=== PATIENT | female | born 1930 | race American Indian/Alaskan Native ===

== ENCOUNTER 2016-12-04 20:52 | Inpatient (IN) | payer MEDICARE ==
--- NOTE | 2016-12-04 21:23 | Emergency Department Report ---
HPI - General Chief Complaint: Neuro Symptoms/Deficit Time Seen by Provider: 12/04/16 20:58 - HPI HPI: Room 8 The patient is an 86-year-old female presenting with a chief complaint of altered mental status/seizure. History is obtained from nurse at [place] who states that approximately 20:30 while in a wheelchair the patient slumped over appear clammy and began twitching/shaking in her face and entire body. The nurse states it appeared as if it was a seizure. Nursing states the patient seems for approximate 5 minutes and afterwards was drooling and unresponsive. The nurse states the patient eventually wiped her mouth and made eye contact but then slumped over again and began drooling. At this time EMS was called for transport. Nursing states this is unusual for the patient she has no history of seizures. The patient is normally alert and able to have a conversation. During my interview the patient is awake and makes eye contact but does not respond verbally Location: Mental state, [facility] [employer] [facility] Duration: [see above] Quality: Altered Severity: Moderate Modifying factors: [see above] Context: [see above] Mode of transportation: [not driving] ED Past Medical Hx - Past Medical History Hx Hypertension: Yes Additional medical history: Dementia, osteoporosis, hypothyroidism - Family History Family history: no significant - Social History Smoking Status: Unknown if ever smoked Substance Use Type: None ED Review of Systems ROS: Stated complaint: POSSIBLE SEIZURE Other details as noted in HPI Comment: Unobtainable due to pts medical conditions Physical Exam - Physical Exam Vital Signs: Vital Signs 12/04/16 12/04/16 21:02 21:08 Temperature 98 F 98 F Pulse Rate 60 58 L Respiratory 16 Rate Blood Pressure 104/36 Blood Pressure 104/36 [Left] O2 Sat by Pulse 96 Oximetry Physical Exam: GENERAL: The patient is well-developed well-nourished elderly female lying on stretcher not appearing to be in acute distress. Contact but does not respond verbally HEENT: Normocephalic. Atraumatic. Extraocular motions are intact. NECK: Supple. Trachea midline CHEST/LUNGS: Clear to auscultation. There is no respiratory distress noted. HEART/CARDIOVASCULAR: Regular. There is no tachycardia. There is no gallop rub or murmur. ABDOMEN: Abdomen is soft, nontender. Patient has normal bowel sounds. There is no abdominal distention. SKIN: There is no rash. There is no edema. There is no diaphoresis. NEURO: The patient is awake and makes eye contact but does not respond verbally. The patient moves all 4 extremities when they are stimulated individually. The patient does not cooperate with an exam MUSCULOSKELETAL: There is no evidence of acute injury. ED Course Vital Signs 12/04/16 12/04/16 21:02 21:08 Temperature 98 F 98 F Pulse Rate 60 58 L Respiratory 16 Rate Blood Pressure 104/36 Blood Pressure 104/36 [Left] O2 Sat by Pulse 96 Oximetry ED Medical Decision Making - Lab Data Result diagrams: 12/04/16 21:29 12/04/16 22:52 Laboratory Tests 12/04/16 12/04/16 12/04/16 21:29 21:29 21:29 WBC 7.8 RBC 4.41 Hgb 10.1 Hct 33.1 MCV 75 L MCH 23 L MCHC 31 RDW 15.1 Plt Count 200 Lymph % (Auto) 24.8 Reeves % (Auto) 5.8 Eos % (Auto) 1.9 Baso % (Auto) 0.6 Lymph # 1.9 Reeves # 0.5 Eos # 0.2 Baso # 0.0 Seg Neutrophils % 66.9 Seg Neutrophils # 5.2 PT 12.2 INR 0.91 APTT 22.5 L Sodium TNR Potassium TNR Chloride TNR Carbon Dioxide TNR Anion Gap TNR BUN TNR Creatinine TNR Estimated GFR TNR BUN/Creatinine Ratio TNR Glucose TNR Calcium TNR Magnesium TNR Total Creatine Kinase TNR CK-MB (CK-2) TNR CK-MB (CK-2) Rel Index TNR Troponin T TNR TSH Free T4 12/04/16 12/04/16 21:29 22:52 WBC RBC Hgb Hct MCV MCH MCHC RDW Plt Count Lymph % (Auto) Reeves % (Auto) Eos % (Auto) Baso % (Auto) Lymph # Reeves # Eos # Baso # Seg Neutrophils % Seg Neutrophils # PT INR APTT Sodium 139 Potassium 4.5 Chloride 99.1 Carbon Dioxide 25 Anion Gap 19 BUN 38 H Creatinine 1.3 H Estimated GFR 47 BUN/Creatinine Ratio 29.23 Glucose 128 H Calcium 8.5 Magnesium Total Creatine Kinase 37 CK-MB (CK-2) < 1.0 CK-MB (CK-2) Rel Index 2.7 Troponin T < 0.010 TSH 5.140 H Free T4 1.12 - EKG Data -: EKG Interpreted by Me EKG shows normal: sinus rhythm Rate: bradycardia (55 bpm) - EKG Data When compared to previous EKG there are: previous EKG unavailable Interpretation: other (no ischemic changes seen) - Radiology Data Radiology results: report reviewed (CT head), image reviewed (CT head) CT head (read by radiologist)-involutional changes. No hemorrhage or cortical infarct - Differential Diagnosis ICH, electrolyte imbalance, intracranial mass Critical care attestation.: If time is entered above; I have spent that time in minutes in the direct care of this critically ill patient, excluding procedure time. ED Disposition Clinical Impression: Altered mental status, Seizure Disposition: OP ADMITTED IP TO THIS HOSP Is pt being admited?: Yes Does the pt Need Aspirin: Yes Condition: Stable Referrals: PRIMARY CARE, [Primary Care Provider] - 3-5 Days Time of Disposition: 00:28 (hospitalist paged)
[2016-12-04 22:11] LABS: Basophils % (Auto) 0.6 % (0.0-1.8); Eosinophils % (Auto) 1.9 % (0.0-4.3); Hematocrit 33.1 % (30.3-42.9); Hemoglobin 10.1 gm/dl (10.1-14.3); Mean Corpuscular HGB Conc 31 % (30-34); Mean Corpuscular Hemoglobin 23 pg (28-32); Mean Corpuscular Volume 75 fl (79-97); Platelet Count 200 K/mm3 (140-440); Red Blood Count 4.41 M/mm3 (3.65-5.03); Red Cell Distribution Width 15.1 % (13.2-15.2); White Blood Count 7.8 K/mm3 (4.5-11.0)
[2016-12-04 22:29] LABS: Anion Gap TNR mmol/L; Carbon Dioxide TNR mmol/L (22-30); Chloride TNR mmol/L (98-107); Potassium TNR mmol/L (3.6-5.0); Sodium TNR mmol/L (137-145)
[2016-12-04 22:30] LABS: BUN/Creatinine Ratio TNR; Blood Urea Nitrogen TNR mg/dL (7-17); Calcium TNR mg/dL (8.4-10.2); Creatine Kinase TNR units/L (30-135); Glucose TNR mg/dL (65-100); Magnesium TNR mg/dL (1.7-2.3)
[2016-12-04 22:31] LABS: Creatine Kinase MB TNR ng/mL (0.0-4.0)
--- NOTE | 2016-12-04 22:32 | Cat Scan Report ---
FINAL REPORT PROCEDURE: CT HEAD/BRAIN WO CON TECHNIQUE: Computerized tomography of the head was performed without contrast material. HISTORY: new-onset seizure, altered mental status COMPARISON: No prior studies are available for comparison. FINDINGS: Skull and scalp: Normal. Paranasal sinuses: Normal. Ventricles and subarachnoid spaces: Moderate dilatation. Cerebrum: No evidence of hemorrhage, acute infarction or mass. Atrophy with periventricular diminished densities. Cerebellum and brainstem: No evidence of hemorrhage, acute infarction or mass. Atrophy. Vasculature: Normal. Comments: None. IMPRESSION: Involutional changes. No hemorrhage or cortical infarct.
[2016-12-04 22:41] LABS: INR 0.91 (0.87-1.13)
[2016-12-04 22:42] LABS: Partial Thromboplastin Time 22.5 Sec. (24.2-36.6)
[2016-12-04] MEDS ORDERED: KEPPRA 1,000 MG/NS 0.75% 100ML 1,000 MG/100 ML BAG IV ONE (23:32)
[2016-12-05 00:11] LABS: Anion Gap 19 mmol/L; BUN/Creatinine Ratio 29.23; Blood Urea Nitrogen 38 mg/dL (7-17); Calcium 8.5 mg/dL (8.4-10.2); Carbon Dioxide 25 mmol/L (22-30); Chloride 99.1 mmol/L (98-107); Creatine Kinase 37 units/L (30-135); Glucose 128 mg/dL (65-100); Potassium 4.5 mmol/L (3.6-5.0); Sodium 139 mmol/L (137-145)
[2016-12-05 00:12] LABS: Creatine Kinase MB < 1.0 ng/mL (0.0-4.0)
[2016-12-05 01:19] LABS: Urine Drugs of Abuse Note Disclamer
[2016-12-05 01:28] LABS: Bilirubin,Urine NEG (Negative); Blood,Urine SM (Negative); Ketones,Urine NEG (Negative); Leukocyte Esterase,Urine SM (Negative); Nitrite,Urine NEG (Negative); Protein,Urine <15 mg/dL mg/dL (Negative); Urobilinogen,Urine < 2.0 mg/dL (<2.0)
--- NOTE | 2016-12-05 07:40 | Event Note ---
Date: 12/05/16 See H/p in reports AMS New onset seizure disorder
[2016-12-05] MEDS ORDERED: NACL 0.9% 1000 ML 1,000 ML IV ONE (08:00)
--- NOTE | 2016-12-05 09:28 | Admit Criteria Form ---
Admission Criteria Documentation: SEIZURE Clinical Indications for Admission to Inpatient Care (Place 'X' for any and all applicable criteria): Admission is indicated for seizure and ANY ONE of the following(1)(2)(3)(4)(5): [X]I. Inpatient admission required rather than observation care (Also use Seizure: Observation Care Criteria as appropriate) because of ANY ONE of the following: [X]a) Altered mental status that is severe or persistent [ ]b) New focal neurologic deficit that is severe or persistent [ ]c) Metabolic disorder (eg, hypoglycemia, hyponatremia) that is severe or persistent [ ]d) Recurrent seizure [ ]e) Outpatient antiseizure regimen cannot be established (eg , patient cannot tolerate medication, initiation requires inpatient care) [ ]f) Need for ongoing intravenous infusion of antiseizure medication [ ]g) Cardiac arrhythmias of immediate concern [ ]h) Cerebral bleeding, hydrocephalus, or vasospasm monitoring (14) [ ]i) Increased intracranial pressure or cerebral edema monitoring (15) [ ]j) Other treatment or monitoring requiring inpatient admission [ ]II. Status epilepticus [A] or repetitive seizures not controlled with emergent treatment (6)(8) [ ]III. Brain disorder (eg, tumor, edema, and hydrocephalus) that requiring monitoring or intervention available only at inpatient level of care. [ ]IV. Brain insult (eg, severe trauma, stroke, drug toxicity, or withdrawal) that requires monitoring or intervention available only at inpatient level of care (10)(11) Extended stay beyond goal length of stay may be needed for (22) [ ]a) Complications of status epilepticus [ ]b) Refractory status epilepticus [ ]c) Etiology-specific therapy for conditions such as [employer]TER infection, head injury,eclampsia, severe metabolic abnormalities, and brain tumor [ ]d) Residual neurologic damage, [ ]e) Initiation of significant change to anticonvulsant treatment [ ]f) Older patients (65 years or older) [ ]g) Patient requiring intubation (eg, to protect airway) The original [facility] content created by [employer] has been revised. The portions of the content which have been revised are identified through the use of italic text or in bold, and [facility] [employer] has neither reviewed nor approved the modified material. All other unmodified content is copyright [email or web address]. Please see references footnoted in the original [facility] edition 2016 Admission Criteria Met: Yes
--- NOTE | 2016-12-05 09:42 | Consultation ---
History of Present Illness - Reason for Consult Consult date: 12/05/16 acute renal failure - History of Present Illness The patient is an 86-year-old AAF was brought into the ER with a complaint of altered mental status. History was obtained from her daughter who was at the bedside and previous documentation. Patient lives at [place], the nurse found her slumped over the wheel chair. She appeared clammy and began twitching /shaking in her face and entire body. Patient was drooling and became unresponsive. The patient is normally alert and able to have a conversation. She was found to have creatinine of 1.3 on admission and improved to 1 today. Medications and Allergies Allergies Allergy/AdvReac Type Severity Reaction Status Date / Time Unable to Assess Allergy Unverified 12/04/16 21:13 Home Medications Medication Instructions Recorded Confirmed Last Taken Type No Known Home Medications [No 12/05/16 12/05/16 Unknown History Reported Home Medications] Active Meds: Active Medications Levetiracetam 500 mg/ Dextrose 105 mls @ 400 mls/hr IV Q12HR LINDA Sodium Chloride (Nacl 0.9% 1000 Ml) 1,000 mls @ 125 mls/hr IV ONCE ONE Stop: 12/05/16 15:59 Last Admin: 12/05/16 08:55 Dose: 125 mls/hr Review of Systems ROS unobtainable: due to mental status Exam - Vital Signs Vital signs: Vital Signs Temp Pulse BP 98 F 60 104/36 12/04/16 21:02 12/04/16 21:02 12/04/16 21:02 - General Appearance General appearance: well-developed, appears stated age, frail, other (no distress, exam is limited as patient is not following any command) EENT: ATNC Neck: Present: neck supple Respiratory: Clear to Ascultation Heart: regular, S1S2, no murmurs Gastrointestinal: Present: normoactive bowel sounds. Absent: tenderness, distended Integumentary: no rash Neurologic: other (alert, non-verbal) Musculoskeletal: Present: other (no edema) Results - Lab Results 12/04/16 21:29 12/05/16 11:03 Most recent lab results Calcium 8.5 mg/dL (8.4-10.2) 12/04/16 22:52 Magnesium TNR 12/04/16 21:29 Assessment and Plan - Patient Problems (1) KYMBERLY (acute kidney injury) Current Visit: Yes Status: Acute Plan to address problem: Acute kidney Injury likely hemodynamically mediated. Creatinine had improved with IV fluids. Slightly elevated CK level noted. Will follow. (2) Altered mental status Current Visit: Yes Status: Acute Qualifiers: Altered mental status type: A Coma depth: C Coma timing: C (3) Seizure Current Visit: Yes Status: Acute
--- NOTE | 2016-12-05 09:59 | History and Physical Report ---
CHIEF COMPLAINT: 1. Seizures. 2. Altered mental status. HISTORY OF PRESENT ILLNESS: An 86-year-old -German female presents to the ER with new onset seizures while in [facility]personal jail. The patient apparently slumped over, became clammy and began shaking in the face and body. The nurse at [facility] mentions that it may be a seizure, which lasted for about 5 minutes, afterwards was drooling and became unresponsive. The patient continued to be with decreased responsiveness. The patient has no history of seizures. The patient is normally alert and able to have a conversation. When I examined the patient, the patient able to make eye contact, but does not respond verbally. No exacerbating or relieving factors, new onset. PAST MEDICAL HISTORY: Significant for dementia, osteoporosis, and hypothyroidism. FAMILY HISTORY: No significant family history. SOCIAL HISTORY: Does not smoke. No alcohol, no recreational drugs. PAST SURGICAL HISTORY: Unknown. REVIEW OF SYSTEMS: Other than seizures and decreased responsiveness. Review of systems could not be done because of the patient's mental status. A 14-point review of systems was attempted. PHYSICAL EXAMINATION: GENERAL: Elderly female, lying in bed and decreased responsiveness. VITAL SIGNS: Temperature 98, pulse is 60, respirations is 16, blood pressure 104/36. HEENT: Unremarkable. Pupils are equal and reactive. NECK: Supple, no lymphadenopathy, no thyromegaly. LUNGS: Clear to auscultation and percussion. Good air entry. CARDIOVASCULAR: S1, S2 heard. No gallop, no murmur, no rub. Apical impulse in left fifth intercostal space and midclavicular line. ABDOMEN: Soft and benign. No hepatosplenomegaly. No guarding, no rigidity. Hernial orifices are normal. EXTREMITIES: Good pedal pulses. No pedal edema. CENTRAL NERVOUS SYSTEM: Decreased responsiveness. Moves all 4 extremities. SKIN: Normal. LABORATORY DATA: Significant for BUN and creatinine of 38 and 1.3; otherwise, normal labs. TSH is 5.14. Urine is negative. Drug screen is negative. IMPRESSION AND PLAN: 1. Altered mental status, probably secondary to seizures. 2. New onset seizures. The patient was started on IV Keppra. We will defer to Neurology whether to continue Keppra or not and transition to p.o. Keppra. 3. Acute renal failure. The patient was started on IV fluids, monitored. Also, renal consult requested by Dr. Cardenas. 4. Deep venous thrombosis prophylaxis, Lovenox 40 mg subcutaneous daily. JOB# [id number] GWYN/MALIK
[2016-12-05] MEDS: KEPPRA 500 MG in D5W 100 ML IV SCH ×2 (10:44→22:30)
[2016-12-05 11:59] LABS: Anion Gap 17 mmol/L; Blood Urea Nitrogen 29 mg/dL (7-17); Calcium 8.7 mg/dL (8.4-10.2); Carbon Dioxide 26 mmol/L (22-30); Creatine Kinase 681 units/L (30-135); Glucose 117 mg/dL (65-100); Potassium 4.9 mmol/L (3.6-5.0); Sodium 141 mmol/L (137-145)
--- NOTE | 2016-12-05 12:17 | Consultation ---
History of Present Illness Consult date: 12/05/16 Requesting physician: JR PAL Reason for Consult: seizure Chief complaint: AMS limits direct hx History of present illness: 86 YO F Hx dementia ? Hx stroke and resident of [place] p/w episode of LOC on 12/04. Pt unable to provide direct hx d/t dementia. According to daughter pt had just finished eating dinner and that at approximately 20:30 while in a wheelchair the patient slumped over appear clammy. BP was apparently low but not clearly documented. Daughter denies convulsion but according to ED physician nurse in home witnessed twitching/shaking in her face and entire body, reportedly appearing as if it was a seizure. Nursing states the patient seems for approximate 5 minutes and afterwards was drooling and unresponsive. The nurse states the patient eventually wiped her mouth and made eye contact but then slumped over again and began drooling. At this time EMS was called for transport. @ baseline the patient is normally alert and able to have a conversation. In ED, patient was awake and alert. She is near her baseline per daughter but has some decreased verbalizations and increased confusion. Past History Past Medical History: other (dementia) Past Surgical History: No surgical history Social history: single. denies: smoking, alcohol abuse, prescription drug abuse , IV drug use Family history: no significant family history Medications and Allergies Allergies Allergy/AdvReac Type Severity Reaction Status Date / Time Unable to Assess Allergy Unverified 12/04/16 21:13 Home Medications Medication Instructions Recorded Confirmed Last Taken Type No Known Home Medications [No 12/05/16 12/05/16 Unknown History Reported Home Medications] Active Meds: Active Medications Levetiracetam 500 mg/ Dextrose 105 mls @ 400 mls/hr IV Q12HR LINDA Last Admin: 12/05/16 10:44 Dose: 400 mls/hr Sodium Chloride (Nacl 0.9% 1000 Ml) 1,000 mls @ 125 mls/hr IV ONCE ONE Stop: 12/05/16 15:59 Last Admin: 12/05/16 08:55 Dose: 125 mls/hr Review of Systems ROS unobtainable: due to mental status Physical Examination - Vital Signs Vital Signs: Vital Signs Temp Pulse BP 98 F 60 104/36 12/04/16 21:02 12/04/16 21:02 12/04/16 21:02 - Constitutional General appearance: comfortable, chronically ill - EENT EENT: Present: ATNC, PERRL, mucous membranes dry, vision intact, other (hearign impaired) - Respiratory Respiratory: Present: chest non-tender, normal breath sounds, no respiratory distress - Cardiovascular Cardiovascular: Present: regular rate Extremities: Present: no peripheral edema bilatateraly, no clubbing, cyanosis, no inflammation, no ischemia or petechiae - Gastrointestinal Gastrointestinal: Present: normoactive bowel sounds, soft, non-distended - Integumentary Integumentary: Present: normal - Neurologic Cranial nerve examination: PERRL, EOMI, VFF, intact, intact shoulder shrug, intact cough reflex Speech examination: other (paucity of speech, disorientation but no clear aphasia) Sensorimotor examination: intact Detailed motor examination: grossly full strength in Motor examination - right side: 4/5: biceps, triceps, wrist flexion, wrist extension, technical operator, hip flexors, knee extensors, dorsiflexion, toe extension (EHL) , plantarflexion Motor examination - left side: 4/5: biceps, triceps, wrist flexion, wrist extension, technical operator, hip flexors, knee extensors, dorsiflexion, toe extension (EHL) , plantarflexion Detailed sensory examination: intact, light touch, pain, temperature Reflex and gait examination: intact Reflexes: 0: ankle, 2+: bicep, knee, tricep - Musculoskeletal Musculoskeletal: Present: no fluid collection, no pain, normal range of motion - Psychiatric Psychiatric: Present: mood/affect appropriate, cooperative Results - Laboratory Findings CBC and BMP: 12/04/16 21:29 12/05/16 11:03 Abnormal Lab Findings: Abnormal Labs 12/05/16 11:03 BUN 29 H Glucose 117 H Total Creatine Kinase 681 H Assessment and Plan 86 YO F 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 assoc w/ convulsion but discrepant Hx according to daughter and nurse @ NH report.. Pt unable to provide direct hx d/ t dementia. Report of hypotension but value not clearly documented. She is near her baseline per daughter but has some decreased verbalizations and increased confusion. CTH nonacute. Pt was found to have KYMBERLY. I am more suspicious for postprandial convulsive syncope from hypotension and toxic metabolic encephalopathy. Plan and Recommendation: 1. Telemetry bed w/ Q4 hour neuro checks & Sz precautions 2. Daughter declines MRI Brain 3. Labs: Serum/Urine Tox, UA/UCx, Electrolytes especially Na, Ca, Mg, and Glucose, TSH/Vit B12/Ammonia and correct as necessary 4. Cont Infectious work up/medical management for UTI, PNA, cellulitis, bacteremia, etc. 5. Avoid hyponatremia, hypo/hyper-calcemia, hypo/hyperglycemia, acidosis, hypoxia/hypoxemia, hypercarbia/hypercapnia 6. Avoid institution of any psychoactive medications (e.g. antihistamines, anticholinergics, BZD, hypnotics, opiates) as able unless low doses of low potency antipsychotic needed for behavioral issues complicating medical care 7. AED therapy: Defer @ this time but will need to re-eval if recurrent seizure 8. Avoid meds that can lower sz threshold e.g. Tramadol, fluroquinolones, carbapenems 9. Pt advised of [place] driving regulations: report date of presumed Seizure/ unexplained loss of consciousness/awareness spell to DMV, refrain from operating a motor vehicle for 6 months after this date, and avoid unsupervised activity particularly around water or heights 10. Neurologically clear for discharge once resolved fully to baseline w/o recurrent seizure for 24 hrs. 11. Follow up as outpt with Neurology 12. We can revisit as needed.
--- NOTE | 2016-12-05 12:42 | Progress Note ---
Assessment and Plan Assessment and plan: Patient is 86-year-old woman from [facility] with a history of dementia, hypothyroidism, osteoporosis and ?CVA who presents with altered mental status with seizure-like activity. CT head without contrast shows no acute findings. -Acute encephalopathy with dehydration -Seizure-like syncope: Neurology is following, symptomatic care for now, no AED , will stop per neuro. Family declined MRI per neurology -KYMBERLY, vasomotor nephropathy due to dehydration, resolved with IV fluids -Dementia, chronic and worsening: continue supportive care -DVT prophylaxis: SCDs added subq heparin -Disposition: Continue inpatient care, anticipate d/c back to [place] tomorrow. Full code Ordered a.m. labs Asked RN to call fpc for medications profile to reconcile History Interval history: Patient seen and examined. Follow up on seizure which has resolved. Overnight uneventful. Patient gives no history. Imaging, old records, testing, labs, nursing notes reviewed. Hospitalist Physical - Physical exam Narrative exam: GEN: Thin frail woman NAD, sleeping but arousable, nonverbal CVS: RRR, NORMAL S1S2 LUNGS/CHEST: CTA B, NORMAL CHEST EXPANSION B, GOOD AIR ENTRY B ABD: SOFT NTND, GBS, NO REBOUND OR GUARDING EXT/SKIN: NO SIGNIFICANT EDEMA OR RASH MSK: Weaker on the right than left extremity NEURO: CN 2-12 GROSSLY INTACT, NO new FOCAL DEFICITS PSY: CALM - Constitutional Vitals: Temp Pulse Resp BP Pulse Ox 98.1 F 55 L 16 131/63 100 12/05/16 09:55 12/05/16 09:55 12/05/16 09:55 12/05/16 09:55 12/05/16 09:55 Results - Labs CBC & Chem 7: 12/04/16 21:29 12/05/16 11:03 Labs: Laboratory Last Values WBC 7.8 K/mm3 (4.5-11.0) 12/04/16 21:29 RBC 4.41 M/mm3 (3.65-5.03) 12/04/16 21:29 Hgb 10.1 gm/dl (10.1-14.3) 12/04/16 21:29 Hct 33.1 % (30.3-42.9) 12/04/16 21:29 MCV 75 fl (79-97) L 12/04/16 21:29 MCH 23 pg (28-32) L 12/04/16 21: MCHC 31 % (30-34) 12/04/16 21: RDW 15.1 % (13.2-15.2) 12/04/16 21: Plt Count 200 K/mm3 (140-440) 12/04/16 21: Lymph % (Auto) 24.8 % (13.4-35.0) 12/04/16 21: [place] % (Auto) 5.8 % (0.0-7.3) 12/04/16 21: Eos % (Auto) 1.9 % (0.0-4.3) 12/04/16 21: Baso % (Auto) 0.6 % (0.0-1.8) 12/04/16 21: Lymph # 1.9 K/mm3 (1.2-5.4) 12/04/16 21: [place] # 0.5 K/mm3 (0.0-0.8) 12/04/16 21: Eos # 0.2 K/mm3 (0.0-0.4) 12/04/16 21: Baso # 0.0 K/mm3 (0.0-0.1) 12/04/16 21: Seg Neutrophils % 66.9 % (40.0-70.0) 12/04/16 21: Seg Neutrophils # 5.2 K/mm3 (1.8-7.7) 12/04/16 21: PT 12.2 Sec. (12.2-14.9) 12/04/16 21: INR 0.91 (0.87-1.13) 12/04/16 21:29 APTT 22.5 Sec. (24.2-36.6) L 12/04/16 21: Sodium 141 mmol/L (137-145) 12/05/16 11:03 Potassium 4.9 mmol/L (3.6-5.0) 12/05/16 11:03 Chloride 103.0 mmol/L (98-107) 12/05/16 11:03 Carbon Dioxide 26 mmol/L (22-30) 12/05/16 11:03 Anion Gap 17 mmol/L 12/05/16 11:03 BUN 29 mg/dL (7-17) H 12/05/16 11:03 Creatinine 1.0 mg/dL (0.7-1.2) 12/05/16 11:03 Estimated GFR > 60 ml/min 12/05/16 11:03 BUN/Creatinine Ratio 29.00 % 12/05/16 11:03 Glucose 117 mg/dL (65-100) H 12/05/16 11:03 Calcium 8.7 mg/dL (8.4-10.2) 12/05/16 11:03 Phosphorus 3.00 mg/dL (2.5-4.5) 12/05/16 11:03 Magnesium 1.90 mg/dL (1.7-2.3) 12/05/16 11:03 Total Creatine Kinase 681 units/L (30-135) H 12/05/16 11:03 CK-MB (CK-2) < 1.0 ng/mL (0.0-4.0) 12/04/16 22:52 CK-MB (CK-2) Rel Index 2.7 (0-4) 12/04/16 22:52 Troponin T < 0.010 ng/mL (0.00-0.029) 12/04/16 22:52 TSH 5.140 mlU/mL (0.270-4.200) H 12/04/16 21:29 Free T4 1.12 ng/dL (0.76-1.46) 12/04/16 21:29 Urine Color Straw (Yellow) 12/05/16 01:15 Urine Turbidity Clear (Clear) 12/05/16 01:15 Urine pH 5.0 (5.0-7.0) 12/05/16 01:15 Ur Specific [place] 1.010 (1.003-1.030) 12/05/16 01:15 Urine Protein <15 mg/dl mg/dL (Negative) 12/05/16 01:15 Urine Glucose (UA) Neg mg/dL (Negative) 12/05/16 01:15 Urine Ketones Neg mg/dL (Negative) 12/05/16 01:15 Urine Blood Sm (Negative) 12/05/16 01:15 Urine Nitrite Neg (Negative) 12/05/16 01:15 Urine Bilirubin Neg (Negative) 12/05/16 01:15 Urine Urobilinogen < 2.0 mg/dL (<2.0) 12/05/16 01:15 Ur Leukocyte Esterase Sm (Negative) 12/05/16 01:15 Urine WBC (Auto) 4.0 /HPF (0.0-6.0) 12/05/16 01:15 Urine RBC (Auto) 2.0 /HPF (0.0-6.0) 12/05/16 01:15 U Epithel Cells (Auto) 1.0 /HPF (0-13.0) 12/05/16 01:15 Urine Opiates Screen Presumptive negative 12/05/16 01:15 Urine Methadone Screen Presumptive negative 12/05/16 01:15 Ur Barbiturates Screen Presumptive negative 12/05/16 01:15 Ur Phencyclidine Scrn Presumptive negative 12/05/16 01:15 Ur Amphetamines Screen Presumptive negative 12/05/16 01:15 U Benzodiazepines Scrn Presumptive negative 12/05/16 01:15 Urine Cocaine Screen Presumptive negative 12/05/16 01:15 U Marijuana (THC) Screen Presumptive negative 12/05/16 01:15 Drugs of Abuse Note Disclamer 12/05/16 01:15 - Imaging and Cardiology CT Scan - head: report reviewed
[2016-12-05] MEDS: HEPARIN SUB-Q SCH (22:31)
[2016-12-06 05:44] LABS: Basophils % (Auto) 0.5 % (0.0-1.8); Eosinophils % (Auto) 3.1 % (0.0-4.3); Hematocrit 29.4 % (30.3-42.9); Hemoglobin 9.3 gm/dl (10.1-14.3); Mean Corpuscular HGB Conc 32 % (30-34); Mean Corpuscular Volume 74 fl (79-97); Platelet Count 185 K/mm3 (140-440); Red Blood Count 3.99 M/mm3 (3.65-5.03); White Blood Count 5.4 K/mm3 (4.5-11.0)
[2016-12-06 05:45] LABS: Mean Corpuscular Hemoglobin 23 pg (28-32)
[2016-12-06 06:01] LABS: Alanine Aminotransferase 6 units/L (7-56); Albumin/Globulin Ratio 1.1 %; Alkaline Phosphatase 48 units/L (35-129); Anion Gap 15 mmol/L; BUN/Creatinine Ratio 23.75; Blood Urea Nitrogen 19 mg/dL (7-17); Calcium 8.6 mg/dL (8.4-10.2); Carbon Dioxide 25 mmol/L (22-30); Chloride 102.8 mmol/L (98-107); Glucose 93 mg/dL (65-100); Potassium 4.7 mmol/L (3.6-5.0); Sodium 138 mmol/L (137-145); Total Protein 5.7 g/dL (6.3-8.2)
--- NOTE | 2016-12-06 06:55 | Progress Note ---
Assessment and Plan - Patient Problems (1) KYMBERLY (acute kidney injury) Status: Acute Plan to address problem: Acute kidney Injury likely hemodynamically mediated. Creatinine had improved with IV fluids. (2) Altered mental status Status: Acute Plan to address problem: MS is better today. (3) Seizure Status: Acute Subjective Date of service: 12/06/16 Interval history: No acute events overnight. Objective - Vital Signs Vital signs: Vital Signs - 12hr 12/05/16 12/05/16 12/06/16 20:00 22:00 00:00 Temperature 97.8 F 98.5 F Pulse Rate Pulse Rate [ 71 59 L Left] Respiratory 18 18 20 Rate Blood Pressure 103/52 119/57 [Left Arm] O2 Sat by Pulse 98 97 Oximetry 12/06/16 01:00 Temperature Pulse Rate 64 Pulse Rate [ Left] Respiratory Rate Blood Pressure [Left Arm] O2 Sat by Pulse Oximetry - General Appearance General appearance: well-developed, appears stated age, frail, other (no distress) EENT: ATNC, mucous membranes moist, hearing diminished Neck: supple Respiratory: Present: Clear to Ascultation Cardiology: regular, S1S2, no murmurs Gastrointestinal: normoactive bowel sounds, no tenderness, no distended Integumentary: no rash Neurologic: other (able to move all 4 extremities) Musculoskeletal: other (no edema) - Lab 12/06/16 05:15 12/06/16 05:15 Most recent lab results Calcium 8.6 mg/dL (8.4-10.2) 12/06/16 05:15 Phosphorus 3.00 mg/dL (2.5-4.5) 12/05/16 11:03 Magnesium 1.90 mg/dL (1.7-2.3) 12/05/16 11:03
[2016-12-06 08:43] VITALS: BP 117/70
[2016-12-06] MEDS: HEPARIN SUB-Q SCH (09:03)
--- NOTE | 2016-12-06 09:11 | Discharge Summary ---
Providers - Providers Date of Admission: 12/05/16 00:48 Date of discharge: 12/06/16 Attending physician: PENELOPE PRECIADO MD 12/05/16 07:40 Consult to Physician [CONS] Routine Consulting Provider: ALVARADO ALEMAN Reason For Exam: seizure Place consult to:: Dr. Aleman Notified:: Elodia RN Phone number called:: Ext [phone] If yes, spoke with:: Voicemail with consult info left for Odalis Perez Time called:: 08:13 12/05/16 07:45 Consult to Physician [CONS] Routine Consulting Provider: LUKE ARRIOLA Reason For Exam: ARF Place consult to:: Dr. Arriola Notified:: Elodia RN Phone number called:: Was contact made?: Yes If yes, spoke with:: Dr. Arriola Time called:: 09:00 Primary care physician: [facility] [employer] Hospitalization Reason for admission: SEIZURE, SYNCOPE Condition: Stable Hospital course: 86 YO F Hx dementia ? Hx stroke and resident of [place] p/w episode of LOC on 12/04. Pt unable to provide direct hx d/t dementia. According to daughter pt had just finished eating dinner and that at approximately 20:30 while in a wheelchair the patient slumped over appear clammy. BP was apparently low but not clearly documented. Daughter denies convulsion but according to ED physician nurse in home witnessed twitching/shaking in her face and entire body, reportedly appearing as if it was a seizure. Nursing states the patient seems for approximate 5 minutes and afterwards was drooling and unresponsive. The nurse states the patient eventually wiped her mouth and made eye contact but then slumped over again and began drooling. At this time EMS was called for transport. @ baseline the patient is normally alert and able to have a conversation. In ED, patient was awake and alert. She is near her baseline per daughter but has some decreased verbalizations and increased confusion CT head without contrast shows no acute findings. Carotid ultrasound was also negative. Patient was seen by a neurologist with recommendation to defer AED set this time due to one episode event. She was rehydrated. She is clinical stable at this time. No further seizures were noted at this time. Daughter declined MRI. Patient stays in a correction and instead blood this point discharged to the correction. Candy present at bedside during my visit Discharge diagnosis -Acute toxic metabolic encephalopathy -Postprandial convulsive syncope -Hypotension -KYMBERLY, vasomotor nephropathy -Hydration -Dementia, chronic and worsening: continue supportive care -Severe debility secondary to frailty -Right Hemiparesis -S/P CVA Disposition: DC/[place] SNF W [facility] Time spent for discharge: 35 MINS Core Measure Documentation - Palliative Care Palliative Care/ Comfort Measures: Not Applicable - Core Measures Any of the following diagnoses?: none - VTE Discharge Requirements Deep Vein Thrombosis/Pulmonary Embolism Present on Admission: No Exam - Physical Exam Narrative exam: Narrative exam: GEN: Thin frail woman NAD, sleeping but arousable, nonverbal CVS: RRR, NORMAL S1S2 LUNGS/CHEST: CTA B, NORMAL CHEST EXPANSION B, GOOD AIR ENTRY B ABD: SOFT NTND, GBS, NO REBOUND OR GUARDING EXT/SKIN: NO SIGNIFICANT EDEMA OR RASH MSK: motor strenght 3/5 on right , 4/5 on left. NEURO: CN 2-12 GROSSLY INTACT, NO new FOCAL DEFICITS, awake, PSY: CALM - Constitutional Vitals: Temp Pulse Resp BP Pulse Ox 98.4 F 61 20 117/70 97 12/06/16 08:42 12/06/16 08:42 12/06/16 08:42 12/06/16 08:42 12/06/16 08:42 Plan Activity: advance as tolerated, no driving until cleared by PCP (FOR 6 MONTHS PER [place] RULES) Diet: low cholesterol Special Instructions: record daily BP diary Additional Instructions: FOLLOW WITH [facility]IMARY [facility] OR [facility]. CONTINUE CURRENT HOME MEDS Follow up with: PRIMARY MD SARAI [Primary Care Provider] - 3-5 Days
[2016-12-06] MEDS: KEPPRA 500 MG in D5W 100 ML IV SCH (10:22)
--- NOTE | 2016-12-07 07:57 | Vascular Lab Report ---
CAROTID DUPLEX STUDY: RIGHT PSVEDV CCA PROX:[id number] CCA DIST:[id number] ICA PROX:4113 ICA MID:7420 ICA DIST:7619 ECA: 86 VERT: 57 11 LEFT PSVEDV CCA PROX:7415 CCA DIST:6512 ICA PROX:5812 ICA MID:9224 ICA DIST:7423 ECA: 69 VERT: 65 13 REASON FOR EXAM: Carotid artery stenosis/syncope. COMMENTS ON THE RIGHT: Doppler frequency analysis is consistent with 16 to 49 percent diameter reduction of the internal carotid artery. Minimal amount of focal calcified plaque is seen in the carotid bulb. The common carotid artery is patent. The external carotid artery is patent. The vertebral artery has antegrade flow. COMMENTS ON THE LEFT: Doppler frequency analysis is consistent with 16 to 49 percent diameter reduction of the internal carotid artery. Minimal amount of plaque is seen. The common carotid artery is patent. The external carotid artery is patent. The vertebral artery has antegrade flow. IMPRESSION: Less than 50% diameter reduction in the internal carotid arteries bilaterally. Consider repeat carotid artery duplex in 12 months.
== END 2016-12-06 14:20 | DRG 682 ==
LOC: ED 20:52 → 4A 12-05 00:48
PROVIDERS: ADMIT Internal Medicine; ATTEND Internal Medicine
DX: N17.0 Acute kidney failure with tubular necrosis (principal); G92 Toxic encephalopathy; G81.91 Hemiplegia, unspecified affecting right dominant side; F03.90 Unspecified dementia, unspecified severity, without behavioral disturbance, psychotic disturbance, mood disturbance, and anxiety; M81.0 Age-related osteoporosis without current pathological fracture; E03.9 Hypothyroidism, unspecified; E86.0 Dehydration; R55 Syncope and collapse; I95.9 Hypotension, unspecified; I10 Essential (primary) hypertension; Z86.73 Personal history of transient ischemic attack (TIA), and cerebral infarction without residual deficits
CPT/HCPCS: 36415; 70450; 80048; 80053; 80307; 81001; 82550; 82553; 83735; 84100; 84439; 84443; 84484; 85025; 85610; 85730; 93005; 93010; 93306; 93880; J1644; J1953; J7030